=== PATIENT | male | born 1935 | race Caucasian/White ===

== ENCOUNTER 2016-11-27 09:27 | Emergency (ER) | payer MEDICARE ==
[~2016-11-27 09:27] MED LIST: Sodium Chloride Irrig Solution 250 ML BOT ONE
== END 2016-11-27 10:10 | disposition home or self-care (01) ==
LOC: MADERS 09:27
DX: S61.411A Laceration without foreign body of right hand, initial encounter (principal); I10 Essential (primary) hypertension; J45.909 Unspecified asthma, uncomplicated; W45.8XXA Other foreign body or object entering through skin, initial encounter
CPT/HCPCS: 99282

== ENCOUNTER 2017-01-07 05:18 | Emergency (ER) | payer MEDICARE ==
[2017-01-07] MEDS ORDERED: Ciprofloxacin 500 MG TAB ONE (05:59)
== END 2017-01-07 06:35 | disposition home or self-care (01) ==
LOC: MADERS 05:18
DX: R33.9 Retention of urine, unspecified (principal); J45.909 Unspecified asthma, uncomplicated; Z79.899 Other long term (current) drug therapy
CPT/HCPCS: 51702

== ENCOUNTER 2018-02-08 03:17 | Emergency (ER) | payer MEDICARE | END 2018-02-08 04:45 | disposition home or self-care (01) | LOC: MADERS 03:17 | DX: N40.1 Benign prostatic hyperplasia with lower urinary tract symptoms (principal); R33.8 Other retention of urine; Z46.6 Encounter for fitting and adjustment of urinary device; J45.909 Unspecified asthma, uncomplicated ==

== ENCOUNTER 2018-02-08 13:53 | Emergency (ER) | payer MEDICARE | END 2018-02-08 15:40 | disposition home or self-care (01) | LOC: MADERS 13:53 | DX: T83.091A Other mechanical complication of indwelling urethral catheter, initial encounter (principal); R31.9 Hematuria, unspecified; I10 Essential (primary) hypertension; J45.909 Unspecified asthma, uncomplicated | CPT/HCPCS: 36415; 51700; 51702; 85014; 85018; 99283 ==

== ENCOUNTER 2018-02-08 20:39 | Emergency (ER) | payer MEDICARE | END 2018-02-08 21:55 | disposition home or self-care (01) | LOC: MADERS 20:39 | DX: T83.038A Leakage of other urinary catheter, initial encounter (principal); R31.9 Hematuria, unspecified; I10 Essential (primary) hypertension; J45.909 Unspecified asthma, uncomplicated | CPT/HCPCS: 51700 ==